=== PATIENT | male | born 1975 | race Two or more races ===

== ENCOUNTER 2022-08-23 21:17 | Emergency (ER) | payer BC ==
[~2022-08-23] VITALS: Ht 180.3 cm; Wt 80.3 kg
== END 2022-08-23 23:55 | disposition home or self-care (01) ==
LOC: ER 21:17
DX: R21 Rash and other nonspecific skin eruption (principal); W57.XXXA Bitten or stung by nonvenomous insect and other nonvenomous arthropods, initial encounter